=== PATIENT | female | born 1960 | race Caucasian/White ===

== ENCOUNTER 2017-11-26 17:52 | Emergency (ER) | payer SELFPAY, OTHER ==
[2017-11-26] MEDS ORDERED: SODIUM CHLORIDE 0.9% 1L BAG IV* (21:17)
[2017-11-26] MEDS ORDERED: PIPER-TAZO 3.375 GM IV (PMX) 100 ML IVPB (21:17)
== END 2017-11-26 21:14 | disposition left against medical advice (07) ==
LOC: E/R 21:14
DX: Z53.21 Procedure and treatment not carried out due to patient leaving prior to being seen by health care provider (principal)
CPT/HCPCS: 93005

== ENCOUNTER 2017-11-27 00:04 | Emergency (ER) | payer OTHER ==
[2017-11-27] MEDS: ONDANSETRON 4 MG INJ IV (02:02)
[2017-11-27] MEDS: morphine 2 MG INJ IV (02:02)
[2017-11-27 02:26] LABS: WHITE BLOOD COUNT 42.7 10^3/ul (4.8-10.8)
[2017-11-27 02:26] LABS: ABNORMAL IP MESSAGE 1; HEMATOCRIT 35.1 % (37.0-47.0); HEMOGLOBIN 11.8 g/dl (12.0-16.0); MEAN CORPUSCULAR HEMOGLOBIN 30.3 pg (29.0-33.0); MEAN CORPUSCULAR HGB CONC 33.6 g/dl (32.0-37.0); MEAN PLATELET VOLUME 10.4 fl (7.4-10.4); PLATELET COUNT 224 10^3/UL (140-415); RED CELL DISTRIBUTION WIDTH 15.9 % (11.5-14.5)
[2017-11-27 02:38] LABS: POSITIVE DIFF @See below
[2017-11-27 02:39] LABS: ADD MAN DIFF? YES
[2017-11-27 02:40] LABS: INR 0.91; PROTIME 12.3 Sec (11.9-14.9)
[2017-11-27 02:41] LABS: PARTIAL THROMBOPLASTIN TIME 31.8 Sec (25.0-35.0)
[2017-11-27 02:51] LABS: ALANINE AMINOTRANSFERASE 51 IU/L (13-69); ALBUMIN 4.6 g/dl (3.3-4.9); ALBUMIN/GLOBULIN RATIO 1.39; ALKALINE PHOSPHATASE 187 IU/L (42-121); ANION GAP 14 (8-16); ASPARTATE AMINO TRANSFERASE 32 IU/L (15-46); BILIRUBIN,INDIRECT 0.4 mg/dl (0-1.1); BILIRUBIN,TOTAL 0.4 mg/dl (0.2-1.3); BLOOD UREA NITROGEN 12 mg/dl (7-20); CALCIUM 9.9 mg/dl (8.4-10.2); CARBON DIOXIDE 26 mmol/L (21-31); CHLORIDE 102 mmol/L (97-110); CREATININE 0.68 mg/dl (0.44-1.00); GLUCOSE 146 mg/dl (70-220); POTASSIUM 4.1 mmol/L (3.5-5.1); SODIUM 138 mmol/L (135-144); TOTAL PROTEIN 7.9 g/dl (6.1-8.1)
[2017-11-27 03:01] LABS: TROPONIN-I 0.074 ng/ml (0.00-0.12)
[2017-11-27 03:49] LABS: ANISOCYTOSIS 1+ (0-0); BAND NEUTROPHILS #M 2.1 10^3/ul (0.0-0.6); BAND NEUTROPHILS % (M) 5 % (0-4); BASOPHIL #M 0.4 10^3/ul (0.0-0.0); BASOPHILS % (M) 1 % (0-2); LYMPHOCYTES #M 1.2 10^3/ul (0.8-2.9); LYMPHOCYTES % (M) 3 % (15-51); MICROCYTOSIS 1+ (0-0); MONOCYTE #M 0.8 10^3/ul (0.3-0.9); MONOCYTES % (M) 2 % (0-11); PLATELET ESTIMATE NORMAL; POLYCHROMASIA 3+ (0-0); SEG NEUT #M 38.9 10^3/ul (1.6-7.5); SEGMENTED NEUTROPHILS (M) % 89 % (39-77); SMUDGE%M 1 % (0-0)
[2017-11-27] MEDS ORDERED: VANCOMYCIN 1 GM (PMX) 250 ML IVPB (04:00)
[2017-11-27] MEDS ORDERED: CEFTRIAXONE 2 GM/50 ML (PMX) 50 ML IVPB (04:00)
[2017-11-27 04:17] LABS: URINE BLOOD (Dip) POC Trace-intact (NEGATIVE); URINE GLUCOSE (Dip) POC Negative (NEGATIVE); URINE KETONES (Dip) POC Negative (NEGATIVE); URINE LEUKOCYTE EST (Dip) POC Trace (NEGATIVE); URINE NITRITE (Dip) POC Negative (NEGATIVE); URINE TOTAL PROTEIN POC 1+ (NEGATIVE)
== END 2017-11-27 05:14 | disposition home or self-care (01) ==
LOC: E/R 00:04
DX: J20.9 Acute bronchitis, unspecified (principal); D64.9 Anemia, unspecified; I10 Essential (primary) hypertension; R07.9 Chest pain, unspecified; Z85.3 Personal history of malignant neoplasm of breast
CPT/HCPCS: 36415; 70450; 71045; 72125; 80053; 81003; 83605; 84484; 85025; 85610; 85730; 87040; 93005; 96374; 96375; 99285-25

== ENCOUNTER 2019-01-30 17:51 | Emergency (ER) | payer OTHER ==
[2019-01-30] MEDS: ACETAMINOPHEN 650MG/20.3ML CUP PO (20:18)
[2019-01-30] MEDS: IBUPROFEN LIQUID (PED) 20 MG/ML CUP PO (20:19)
== END 2019-01-30 21:17 | disposition home or self-care (01) ==
LOC: FTE 17:51
DX: S93.401A Sprain of unspecified ligament of right ankle, initial encounter (principal); X50.1XXA Overexertion from prolonged static or awkward postures, initial encounter; Y92.9 Unspecified place or not applicable; Z85.3 Personal history of malignant neoplasm of breast
CPT/HCPCS: 73610; 73610-RT; 99283-25